=== PATIENT | female | born 1975 ===

== ENCOUNTER 2020-09-09 15:46 | Outpatient (CLI) | payer OTHER | END 2020-09-09 16:00 | disposition home or self-care (01) | LOC: RX STUDY 15:46 | DX: K59.01 Slow transit constipation (principal) ==

== ENCOUNTER 2021-12-16 07:15 | Outpatient (CLI) | payer OTHER | END 2021-12-16 07:30 | disposition home or self-care (01) | LOC: RX STUDY 07:15 | DX: K56.50 Intestinal adhesions [bands], unspecified as to partial versus complete obstruction (principal) ==